=== PATIENT | male | born 1975 | race African-American/Black ===

== ENCOUNTER 2016-09-27 13:26 | Outpatient (CLI) | payer BC, MEDICAID | END 2016-09-27 13:27 | disposition home or self-care (01) | DX: E11.9 Type 2 diabetes mellitus without complications (principal); M54.5 Low back pain; I10 Essential (primary) hypertension ==

== ENCOUNTER 2017-02-05 16:22 | Outpatient (CLI) | payer BC ==
[2017-02-05 19:25] LABS: HEMOGLOBIN A1C 1.31 g/dL
[2017-02-05 19:30] LABS: H. PYLORI IGG ANTIBODY POSITIVE (Negative); HPYLORI NEG QC Negative (Negative); HPYLORI POS QC POSITIVE (Positive)
[2017-02-05 19:33] LABS: ALBUMIN/GLOBULIN RATIO 1.2 (1.0-2.2); BILIRUBIN,TOTAL 0.4 mg/dL (0.2-1.0); CREATININE 0.9 mg/dL (0.6-1.2); POTASSIUM 3.8 mmol/L (3.5-5.0); TOTAL PROTEIN 7.6 g/dL (6.7-8.2)
== END 2017-02-05 16:23 | disposition home or self-care (01) ==
LOC: LAB.WCP 16:22
PROVIDERS: ATTEND Family Medicine
DX: E11.9 Type 2 diabetes mellitus without complications (principal); K30 Functional dyspepsia
CPT/HCPCS: 36415; 80053; 83036; 87339

== ENCOUNTER 2017-04-18 13:29 | Outpatient (CLI) | payer BC ==
--- NOTE | 2017-04-18 15:36 | MRI Report ---
EXAM: LEFT SHOULDER MRI WITHOUT CONTRAST EXAM DATE: 04/18/2017 02:31 PM. CLINICAL HISTORY: Chronic left shoulder pain since clavicle/shoulder separation surgery. COMPARISON: X-ray 04/10/17. TECHNIQUE: Multiplanar, multisequence T1-weighted and fluid-sensitive sequences of the shoulder witho ut contrast. Other: None. FINDINGS: Acromioclavicular Region: The acromion is type III. There acromioclavicular joint is normally aligned . There is metallic artifact adjacent to the AC joint consistent with the history of prior surgical r epair. Ossification on the coracoclavicular ligament is better visualized on the earlier x-ray. Glenohumeral Region: No subluxation. No effusion or loose bodies. The articular cartilage is unremark able. The inferior capsule appears thickened at its anterior margin, suggesting prior partial thickne ss tear of the anterior band of the inferior glenohumeral ligament. Bone Marrow: No fracture, marrow edema or bone lesions. Labrum: The labrum is unremarkable on this nonarthrographic study. Musculature/Rotator Cuff: There is a 10 x 12 mm partial-thickness, humeral surface tear of supraspina tus involving greater than 50% of the tendon thickness. Infraspinatus and subscapularis appear unrema rkable. There is no atrophy. Biceps Tendon: The long head of the biceps tendon and biceps victor manuel are intact. Other: The subcutaneous tissues are unremarkable. IMPRESSION: 1. Partial thickness tear of supraspinatus. 2. Ossification of the coracoclavicular ligament better visualized on the prior x-ray. 3. The acromioclavicular joint is normally aligned. 4. Possible prior partial thickness tear and scarring of the inferior glenohumeral ligament. [facility]CULOSKE[facility] SECTION Referring Provider Line: [phone] SITE ID: [id number]
== END 2017-04-18 13:30 | disposition home or self-care (01) ==
LOC: DI 13:29
PROVIDERS: ATTEND Orthopaedic Surgery
DX: M75.102 Unspecified rotator cuff tear or rupture of left shoulder, not specified as traumatic (principal); M67.814 Other specified disorders of tendon, left shoulder

== ENCOUNTER 2017-07-15 15:00 | Outpatient (CLI) | payer BC | END 2017-07-15 15:01 | disposition home or self-care (01) | LOC: LAB.WCP 15:00 | PROVIDERS: ATTEND Family Medicine | DX: R30.0 Dysuria (principal) | CPT/HCPCS: 87086 ==

== ENCOUNTER 2017-12-30 08:00 | Outpatient (CLI) | payer OTHER ==
[2017-12-30 12:58] LABS: ALBUMIN/GLOBULIN RATIO 1.1 (1.0-2.2); ALKALINE PHOSPHATASE 57 IU/L (42-121); ALT ALANINE AMINOTRANSFERASE 32 IU/L (10-60); AST ASPARTATE AMINOTRANSFERASE 27 IU/L (10-42); BILIRUBIN,TOTAL 0.9 mg/dL (0.2-1.0); BUN - BLOOD UREA NITROGEN 10 mg/dL (6-20); CARBON DIOXIDE - CO2 24 mmol/L (21-32); CHLORIDE 102 mmol/L (101-111); CREATININE 0.9 mg/dL (0.6-1.2); GFR - MDRD 112 (>89); GLUCOSE 245 mg/dL (70-100); SODIUM 135 mmol/L (135-145); TOTAL PROTEIN 7.5 g/dL (6.7-8.2)
[2017-12-30 13:28] LABS: HEMOGLOBIN A1C 1.49 g/dL; HEMOGLOBIN A1C % 11.2 % (4.6-6.2)
== END 2017-12-30 08:01 | disposition home or self-care (01) ==
LOC: LAB.WCP 08:00
PROVIDERS: ATTEND Family Medicine
DX: E11.9 Type 2 diabetes mellitus without complications (principal)
CPT/HCPCS: 36415; 80053; 82043; 83036; 84443

== ENCOUNTER 2018-01-28 08:07 | Outpatient (CLI) | payer BC, OTHER ==
[2018-01-28 13:26] LABS: ALBUMIN 4.3 g/dL (3.2-5.5); ALBUMIN/GLOBULIN RATIO 1.3 (1.0-2.2); ALKALINE PHOSPHATASE 46 IU/L (42-121); ALT ALANINE AMINOTRANSFERASE 36 IU/L (10-60); AST ASPARTATE AMINOTRANSFERASE 25 IU/L (10-42); BILIRUBIN,TOTAL 0.8 mg/dL (0.2-1.0); BUN - BLOOD UREA NITROGEN 14 mg/dL (6-20); CALCIUM 8.8 mg/dL (8.5-10.3); CARBON DIOXIDE - CO2 24 mmol/L (21-32); CHLORIDE 104 mmol/L (101-111); CHOL/HDL RATIO 8.3 (<5.0); CHOLESTEROL 231 mg/dL; CREATININE 0.9 mg/dL (0.6-1.2); GFR - MDRD 112 (>89); GLUCOSE 129 mg/dL (70-100); HDL CHOLESTEROL 28 mg/dL; LDL CHOLESTEROL,CALCULATED 188 mg/dL; LDL/HDL RATIO 6.7 (<3.6); SODIUM 138 mmol/L (135-145); TOTAL PROTEIN 7.7 g/dL (6.7-8.2); VLDL CHOLESTEROL 15 mg/dL
== END 2018-01-28 08:08 | disposition home or self-care (01) ==
LOC: LAB.WCP 08:07
PROVIDERS: ATTEND Family Medicine
DX: E11.9 Type 2 diabetes mellitus without complications (principal); I10 Essential (primary) hypertension; E78.5 Hyperlipidemia, unspecified
CPT/HCPCS: 36415; 80053; 80061; 83721; 84443; 86340

== ENCOUNTER 2018-03-11 08:10 | Outpatient (CLI) | payer BC ==
[2018-03-11 13:10] LABS: ALBUMIN 4.5 g/dL (3.2-5.5); ALBUMIN/GLOBULIN RATIO 1.3 (1.0-2.2); BILIRUBIN,TOTAL 0.8 mg/dL (0.2-1.0); CALCIUM 9.2 mg/dL (8.5-10.3)
[2018-03-11 13:28] LABS: HB2 TOTAL 14.8 g/dL; HEMOGLOBIN A1C 0.93 g/dL; HEMOGLOBIN A1C % 7.9 % (4.6-6.2)
== END 2018-03-11 08:11 | disposition home or self-care (01) ==
LOC: LAB.WCP 08:10
PROVIDERS: ATTEND Family Medicine
DX: E11.9 Type 2 diabetes mellitus without complications (principal)
CPT/HCPCS: 36415; 80053; 83036